=== PATIENT | male | born 1995 | race African-American/Black ===

== ENCOUNTER 2020-10-25 04:55 | Emergency (ER) | payer OTHER ==
[~2020-10-25] VITALS: Ht 177.8 cm; Wt 90.7 kg
[~2020-10-25 04:55] MED LIST: ACETAMINOPHEN-120 ML PO; PHENERGAN 25 MG25 M1 PO; VENTOLIN17 GM INH
[2020-10-25] MEDS ORDERED: LISINOPRIL20 MG PO (05:11)
[2020-10-25] MEDS ORDERED: MOBIC15 MG PO (06:13)
[2020-10-25 06:59] VITALS: BP 126/80
--- NOTE | 2020-10-25 11:30 | EKG ---
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
== END 2020-10-25 07:00 | disposition home or self-care (01) ==
LOC: ER 04:55
DX: S29.012A Strain of muscle and tendon of back wall of thorax, initial encounter (principal); I10 Essential (primary) hypertension; Z79.899 Other long term (current) drug therapy; X58.XXXA Exposure to other specified factors, initial encounter; Y93.89 Activity, other specified; Y92.89 Other specified places as the place of occurrence of the external cause; Y99.8 Other external cause status